=== PATIENT | male | born 1970 | race African-American/Black ===

== ENCOUNTER 2017-01-13 17:36 | Emergency (ER) | payer MEDICAID ==
[~2017-01-13] VITALS: Ht 193 cm; Wt 117.9 kg
[2017-01-13] MEDS ORDERED: traMADol HCL 50 MG TAB PO ONE (18:45)
[2017-01-13 19:06] LABS: Basophils # (auto) 0 uL; Basophils % (auto) 0.5 % (0.0-2.0); Eosinophils # (auto) 0.2 uL; Eosinophils % (auto) 2.3 % (0.0-7.0); Hemoglobin 14.4 g/dL (13.5-17.5); Lymphocytes # (auto) 2.2 uL; Lymphocytes % (auto) 30.8 % (10.0-50.0); Mean Corpuscular Hgb Conc. 32.7 g/dL (32.0-36.0); Mean Corpuscular Volume 98.1 fL (80.0-100.0); Mean Platelet Volume 10.1 fL (7.4-10.4); Monocytes # (auto) 0.6 uL; Monocytes % (auto) 8.5 % (0.0-12.0); Neutrophils # (auto) 4.1 uL; Neutrophils % (auto) 57.9 % (37.0-80.0); Platelet Count (auto) 254 10^3/uL (140-450); Red Cell Distribution Width 14.7 % (11.6-16.0); White Blood Cell 7.1 10^3/uL (4.4-10.8)
[2017-01-13 19:15] LABS: Anion Gap 8 (5-15); BUN/Creatinine Ratio 11.3; Blood Urea Nitrogen 12 mg/dL (7-18); Calcium 8.4 mg/dL (8.5-10.1); Carbon Dioxide 26 mmol/L (21-32); Chloride 105 mmol/L (98-107); GFR African American 96 mL/min; GFR Non-African American 80 mL/min; Glucose 87 mg/dL (74-106); Potassium 4.1 mmol/L (3.5-5.1); Sodium 139 mmol/L (136-145)
[2017-01-14 01:30] VITALS: BP 145/90
== END 2017-01-14 00:50 | disposition home or self-care (01) ==
LOC: EDBD 17:36 → EDUNIT# 17:36 → ER 17:40
DX: F32.9 Major depressive disorder, single episode, unspecified (principal); R45.851 Suicidal ideations; F17.210 Nicotine dependence, cigarettes, uncomplicated; F12.10 Cannabis abuse, uncomplicated; F20.9 Schizophrenia, unspecified
CPT/HCPCS: 36415; 80048; 80307; 80320; 85025; 93005

== ENCOUNTER 2017-12-17 22:36 | Emergency (ER) | payer MEDICAID ==
[~2017-12-17] VITALS: Ht 193 cm; Wt 115.7 kg
[2017-12-17 22:52] VITALS: BP 144/94
[2017-12-18] MEDS ORDERED: KETOROLAC TROMETH 60MG/2ML VIAL IM ONE (00:45)
== END 2017-12-18 01:45 | disposition home or self-care (01) ==
LOC: ER 22:38
DX: S02.2XXA Fracture of nasal bones, initial encounter for closed fracture (principal); F17.210 Nicotine dependence, cigarettes, uncomplicated; M54.9 Dorsalgia, unspecified; G89.29 Other chronic pain; M62.838 Other muscle spasm; Y08.89XA Assault by other specified means, initial encounter; Y93.89 Activity, other specified; Y99.8 Other external cause status; Y92.89 Other specified places as the place of occurrence of the external cause
CPT/HCPCS: 70450; 70486; 96372; 99284; J1885

== ENCOUNTER 2018-01-26 14:50 | Emergency (ER) | payer MEDICAID ==
[~2018-01-26] VITALS: Ht 193 cm; Wt 108.9 kg
[2018-01-26 15:25] LABS: Urine Bacteria NONE SEEN /hpf (None Seen); Urine Blood Negative /uL (Negative); Urine Specific Gravity 1.019 (1.001-1.035); Urine WBC 2 /hpf (0 - 3)
[2018-01-26 15:42] LABS: Alcohol, Urine < 3.0 mg/dL (0-5); Amphetamine Screen, Urine NEGATIVE (NEGATIVE); Barbiturate Scree,Urine NEGATIVE (NEGATIVE); Benzodiazephine Screen, Urine NEGATIVE (NEGATIVE); Cannabinoid Screen, Urine POSITIVE (NEGATIVE); Cocaine Screen, Urine NEGATIVE (NEGATIVE); Opiate Scree,Urine NEGATIVE (NEGATIVE); Phencyclidine Screen, Urine NEGATIVE (NEGATIVE)
[2018-01-26 16:18] LABS: Basophils # (auto) 0.1 uL; Basophils % (auto) 1.4 % (0.0-2.0); Eosinophils # (auto) 0.4 uL; Eosinophils % (auto) 7.2 % (0.0-7.0); Hematocrit 37.5 % (41.0-53.0); Hemoglobin 12.9 g/dL (13.5-17.5); Lymphocytes % (auto) 33.9 % (10.0-50.0); Mean Corpuscular Hgb Conc. 34.2 g/dL (32.0-36.0); Mean Corpuscular Volume 99.3 fL (80.0-100.0); Monocytes # (auto) 0.5 uL; Monocytes % (auto) 8.4 % (0.0-12.0); Neutrophils # (auto) 2.9 uL; Neutrophils % (auto) 49.1 % (37.0-80.0); Nucleated Red Blood Cells % 0.1 %; Platelet Count (auto) 185 10^3/uL (140-450); Red Blood Cells 3.78 10^6/uL (4.5-5.90); Red Cell Distribution Width 14.1 % (11.8-14.3)
[2018-01-26 16:42] LABS: Alanine Aminotransferase 21 U/L (16-61); Albumin 3.6 g/dL (3.4-5.0); Alkaline Phosphatase 135 U/L (45-117); Anion Gap 6 (5-15); Aspartate Aminotransferase 16 U/L (15-37); BUN/Creatinine Ratio 15.7; Bilirubin, Total 0.3 mg/dL (0.2-1.0); Blood Urea Nitrogen 14 mg/dL (7-18); Carbon Dioxide 26 mmol/L (21-32); Chloride 108 mmol/L (98-107); GFR African American 117 mL/min; GFR Non-African American 97 mL/min; Glucose 97 mg/dL (74-106); Sodium 140 mmol/L (136-145); Total Protein 7.2 g/dL (6.4-8.2)
[2018-01-26 18:40] VITALS: BP 123/78
[2018-01-26] MEDS ORDERED: HYDROcodone-ACET 5/325MG TAB ONE (22:24)
[2018-01-26] MEDS ORDERED: HYDROcodone-ACET 5/325MG TAB PO ONE (22:30)
== END 2018-01-26 22:31 | disposition home or self-care (01) ==
LOC: ER 14:50
DX: G89.4 Chronic pain syndrome (principal); F43.12 Post-traumatic stress disorder, chronic; F17.210 Nicotine dependence, cigarettes, uncomplicated; F32.9 Major depressive disorder, single episode, unspecified; F20.9 Schizophrenia, unspecified
CPT/HCPCS: 36415; 70450; 80053; 80307; 81001; 84484; 85025; 93005

== ENCOUNTER 2019-07-31 21:42 | Emergency (ER) | payer MEDICAID ==
[~2019-07-31] VITALS: Ht 193 cm; Wt 117.9 kg
[2019-07-31 22:05] VITALS: BP 133/88
[2019-08-01] MEDS ORDERED: DexAMETHasone SOD PHOS 10MG/1ML VIAL INJ IM ONE (02:00)
[2019-08-01] MEDS ORDERED: BACLOFEN 10 MG TAB PO ONE (02:00)
== END 2019-08-01 03:06 | disposition home or self-care (01) ==
LOC: ER 21:46
DX: M54.16 Radiculopathy, lumbar region (principal); F17.210 Nicotine dependence, cigarettes, uncomplicated; F12.10 Cannabis abuse, uncomplicated
CPT/HCPCS: 96372; 99283; J1100

== ENCOUNTER 2019-08-13 22:48 | Emergency (ER) | payer MEDICAID ==
[~2019-08-13] VITALS: Ht 193 cm; Wt 117.9 kg
[2019-08-13 23:19] LABS: Basophils # (auto) 0.1 uL; Basophils % (auto) 1.1 % (0.0-2.0); Eosinophils # (auto) 0.2 uL; Eosinophils % (auto) 2.6 % (0.0-7.0); Hematocrit 44.1 % (41.0-53.0); Lymphocytes # (auto) 2.6 uL; Mean Corpuscular Hemoglobin 33.8 pg (28.0-32.0); Mean Corpuscular Hgb Conc. 34.1 g/dL (32.0-36.0); Mean Corpuscular Volume 99.1 fL (80.0-100.0); Monocytes # (auto) 0.6 uL; Monocytes % (auto) 6.4 % (0.0-12.0); Neutrophils # (auto) 5.2 uL; Neutrophils % (auto) 59.9 % (37.0-80.0); Platelet Count (auto) 199 10^3/uL (140-450); Red Blood Cells 4.45 10^6/uL (4.5-5.90); Red Cell Distribution Width 16.2 % (11.8-14.3); White Blood Cell 8.6 10^3/uL (4.4-10.8)
[2019-08-13 23:37] LABS: Albumin 3.9 g/dL (3.4-5.0); Calcium 8.7 mg/dL (8.5-10.1); Potassium 4.3 mmol/L (3.5-5.1)
[2019-08-13 23:42] LABS: Bilirubin, Total 0.4 mg/dL (0.2-1.0); Total Protein 8.3 g/dL (6.4-8.2)
[2019-08-14 03:28] LABS: Urine Bacteria NONE SEEN /hpf (None Seen); Urine Blood Negative /uL (Negative); Urine Specific Gravity 1.017 (1.001-1.035); Urine WBC 2 /hpf (0 - 3)
[2019-08-14 07:47] VITALS: BP 130/87
== END 2019-08-14 07:59 | disposition home or self-care (01) ==
LOC: ER 22:48
DX: K59.00 Constipation, unspecified (principal); M54.5 Low back pain; I10 Essential (primary) hypertension; F17.210 Nicotine dependence, cigarettes, uncomplicated
CPT/HCPCS: 36415; 74176; 80053; 81001; 85025

== ENCOUNTER 2021-09-02 15:46 | Emergency (ER) | payer MEDICAID ==
[~2021-09-02] VITALS: Ht 193 cm; Wt 112.0 kg
[2021-09-02 17:28] LABS: Basophils # (auto) 0 10 ^3/uL (0-0.2); Basophils % (auto) 0.8 % (0.0-2.0); Eosinophils # (auto) 0.1 10 ^3/uL (0-0.8); Eosinophils % (auto) 1.9 % (0.0-7.0); Hematocrit 43.6 % (41.0-53.0); Hemoglobin 14.5 g/dL (13.5-17.5); Lymphocytes # (auto) 1.3 10 ^3/uL (0.4-5.4); Lymphocytes % (auto) 25.9 % (10.0-50.0); Mean Corpuscular Hemoglobin 33.6 pg (28.0-32.0); Mean Corpuscular Hgb Conc. 33.3 g/dL (32.0-36.0); Mean Corpuscular Volume 100.7 fL (80.0-100.0); Monocytes # (auto) 0.6 10 ^3/uL (0-1.3); Monocytes % (auto) 12.6 % (0.0-12.0); Neutrophils % (auto) 58.8 % (37.0-80.0); Nucleated Red Blood Cells % 0.1 %; Red Blood Cells 4.33 10^6/uL (4.5-5.90); Red Cell Distribution Width 14.1 % (11.8-14.3); White Blood Cell 5.1 10^3/uL (4.4-10.8)
[2021-09-02 17:34] LABS: Albumin 3.9 g/dL (3.4-5.0); Calcium 8.6 mg/dL (8.5-10.1); Potassium 3.9 mmol/L (3.5-5.1)
[2021-09-02 17:41] LABS: BUN/Creatinine Ratio 7.4; Bilirubin, Total 0.2 mg/dL (0.2-1.0); Total Protein 8.2 g/dL (6.4-8.2)
[2021-09-02] MEDS ORDERED: AML5T GT (19:30)
[2021-09-02 20:15] VITALS: BP 148/86
== END 2021-09-02 20:15 | disposition home or self-care (01) ==
LOC: EDBD 15:46 → ER 15:46
DX: I10 Essential (primary) hypertension (principal); F41.9 Anxiety disorder, unspecified; F17.290 Nicotine dependence, other tobacco product, uncomplicated; F12.10 Cannabis abuse, uncomplicated
CPT/HCPCS: 36415; 71045; 80053; 84484; 85025; 93005

== ENCOUNTER 2025-07-20 12:12 | Emergency (ER) | payer MEDICAID ==
[~2025-07-20] VITALS: Ht 193 cm; Wt 101.4 kg
[~2025-07-20 12:12] MED LIST: AML5T GT
--- NOTE | 2025-07-20 12:26 | ECG ---
[facility] Test Date: 2025-07-20 Test Time: 12:24:45 Pat Name: VIET BUI Department: ED Room: Gender: M Records Tech: : 1970 Requested By: TAYLOR POWERS Order Number: [id number] Reading MD: Christos Arriaga Measurements Intervals [place] Rate: 73 P: 82 NE: 183 QRS: 24 QRSD: 83 T: 58 QT: 390 QTc: 430 Interpretive Statements Sinus rhythm Electronically Signed On 07-22-2025 17:19:30 PST by Christos Arriaga Please click the below link to view image of tracing.
--- NOTE | 2025-07-20 12:30 | ED.PDOC ---
HPI Comments 55 year old male with PMHx HTN, schizophrenia presents to the ED With a chief complaint of chest pain onset 1 day. Patient has been experiencing LT sided, non-radiating chest pain, described as pressure sensation, rates pain 7/10. He is also experiencing nausea and headache. Has experienced pain in the past, has been seen and had negative cardiac workup. Denies vomiting, diarrhea, numbness/tingling, weakness, fever, chills, cough, cold, congestion, shortness of breath, headache, dizziness. No other symptoms or modifying factors present at this time. Chief Complaint: Chest Pain Time Seen by MD: 12:20 Primary Care Provider: ESTELA Franco Notes: Medications, Allergies Allergies: Coded Allergies: NO KNOWN ALLERGIES (Unverified , 01/04/16) Home Meds Active Scripts Amlodipine Besylate (NORVASC TABLET) 5 Mg Tb, 10 MG GT DAILY, #30 TAB Prov:JUVENCIO POSEY DO 09/02/21 Information Source: Patient Mode of Arrival: Ambulatory Severity: Moderate Timing: Days Duration: Since onset Prehospital treatment: None Location: Chest (L) Radiation: No Radiation Quality: Sharp, Pressure Onset: At Rest Cardiac Risk Factors: HTN PE Risk Factors: None History of: Similar pain in past Modifying Factors: Nothing Past Medical History PAST MEDICAL HISTORY: Anxiety, Depression, HTN, Schizophrenia Family History Family History: Family hx of DM Social History Smoker: Cigar Alcohol: Denies ETOH Use Drugs: Marijuana Lives In: Home Constitutional: denies: chills, diaphoresis, fatigue, fever, malaise, sweats, weakness, others EENTM: denies: blurred vision, double vision, ear bleeding, ear discharge, ear drainage, ear pain, ear ringing, eye pain, eye redness, hearing loss, mouth pain, mouth swelling, nasal discharge, nose bleeding, nose congestion, nose pain, photophobia, tearing, throat pain, throat swelling, voice changes, others Respiratory: denies: cough, hemoptysis, orthopnea, SOB at rest, shortness of breath, SOB with excertion, stridor, wheezing, others Cardiovascular: reports: chest pain; denies: dizzy spells, diaphoresis, Dyspnea on exertion, edema, irregular heart beat, left arm pain, lightheadedness, palpitations, PND, syncope, others Gastrointestinal: reports: nausea; denies: abdomen distended, abdominal pain, blood streaked bowels, constipated, diarrhea, dysphagia, difficulty swallowing, hematemesis, melena, poor appetite, poor fluid intake, rectal bleeding, rectal pain, vomiting, others Neurological: reports: headache; denies: dizziness, fainting, left sided numbness, left sided weakness, numbness, paresthesia, pre-existing deficit, right sided numbness, right sided weakness, seizure, speech problems, tingling, tremors, weakness, others Musculoskeletal: denies: back pain, gout, joint pain, joint swelling, muscle pain, muscle stiffness, neck pain, others Integumetry: denies: bruises, change in color, change in hair/nails, dryness, laceration, lesions, lumps, rash, wounds, others Allergic/Immunocompromised: denies: Difficulty Healing, Frequent Infections, Hives, Itching, others Hematologic/Lymphatic: denies: anemia, blood clots, easy bleeding, easy bruising, swollen glands, others Endocrine: denies: excessive hunger, excessive sweating, excessive thirst, excessive urination, flushing, intolerance to cold, intolerance to heat, u nexplained weight gain, unexplained weight loss, others Psychiatric: denies: anxiety, bipolar disorder, depression, hopeless, panic disorder, schizophrenia, sleepless, suicidal, others All Other Systems: Reviewed and Negative Physical Exam General Appearance: No Apparent Distress, Normal HEENT: Normal ENT Inspection, Pharynx Normal, TMs Normal Neck: Full Range of Motion, Non-Tender, Normal, Normal Inspection Respiratory: Chest Non-Tender, Lungs Clear, No Accessory Muscle Use, No Respiratory Distress, Normal Breath Sounds Cardiovascular: No Edema, No JVD, No Murmur, No Gallop, Normal Peripheral P ulses, Regular Rate/Rhythm Breast Exam: Deferred Gastrointestinal: No Organomegaly, Non Tender, No Pulsatile Mass, Normal Bowel Sounds, Soft Genitalia: Deferred Pelvic: Deferred Rectal: Deferred Extremities: No calf tenderness, Normal capillary refill, Normal inspection, Normal range of motion, Non-tender, No pedal edema Musculoskeletal : Apperance: Normal Neurologic: Alert, cleater II-XII nml as Tested, No Motor Deficits, Normal Affect, Normal Mood, No Sensory Deficits Cerebellar Function: Normal Reflexes: Normal Skin: Dry, Normal Color, Warm Lymphatic: No Adenopathy Was a procedure done? Was a procedure done?: No CP Differential Dx Differential Diagnosis: MAT, CT, PAC's Differential Diagnosis: Chest Wall Pain, Costochondritis, Myocardial Infarction X-Ray, Labs, Meds, VS Vital Signs Date Time Temp Pulse Resp B/P (MAP) Pulse Ox O2 Delivery O2 Flow Rate FiO2 07/20/25 13:35 97.8 10 16 146/93 (110) 99 97.8 07/20/25 13:34 68 07/20/25 12:24 73 07/20/25 12:16 97.9 75 16 138/86 99 97.9 Lab Test 07/20/25 13:54 07/20/25 12:47 Range/Units Troponin I High Sensitivity < 3 L < 3 L </=54 ng/L White Blood Count 5.9 4.4-10.8 10^3/uL Red Blood Count 4.19 L 4.5-5.90 10^6/uL Hemoglobin 14.5 13.5-17.5 g/dL Hematocrit 42.8 41.0-53.0 % Mean Corpuscular Volume 102.2 H 80.0-100.0 fL Mean Corpuscular Hemoglobin 34.6 H 28.0-32.0 pg Mean Corpuscular Hemoglobin Concent 33.8 32.0-36.0 g/dL Red Cell Distribution Width 13.6 11.8-14.3 % Platelet Count 214 140-450 10^3/uL Mean Platelet Volume 10.0 6.9-10.8 fL Neutrophils (%) (Auto) 64.4 37.0-80.0 % Lymphocytes (%) (Auto) 23.1 10.0-50.0 % Monocytes (%) (Auto) 8.8 0.0-12.0 % Eosinophils (%) (Auto) 2.4 0.0-7.0 % Basophils (%) (Auto) 1.3 0.0-2.0 % Neutrophils # (Auto) 3.8 1.6-8.6 10 ^3/uL Lymphocytes # (Auto) 1.4 0.4-5.4 10 ^3/uL Monocytes # (Auto) 0.5 0-1.3 10 ^3/uL Eosinophils # (Auto) 0.1 0-0.8 10 ^3/uL Basophils # (Auto) 0.1 0-0.2 10 ^3/uL Nucleated Red Blood Cells 0.1 % Sodium Level 142 136-145 mmol/L Potassium Level 4.0 3.5-5.1 mmol/L Chloride Level 108 H 98-107 mmol/L Carbon Dioxide Level 27 20-31 mmol/L Anion Gap 7 5-15 Blood Urea Nitrogen 6 L 9-23 mg/dL Creatinine 0.95 0.700-1.30 mg/dL Glomerular Filtration Rate Calc 94 >90 mL/min BUN/Creatinine Ratio 6.3 L 10.0-20.0 Serum Glucose 89 74-106 mg/dL Calcium Level 9.2 8.7-10.4 mg/dL [place] [id number] Ph: [phone] DIAGNOSTIC IMAGING Diagnostic Imaging Report : [id number] Signed PATIENT: VIET BUI ACCT: [id number] UNIT: [id number] : 1970 LOC: ER ROOM / BED: / AGE / SEX: 55 / M ADM STATUS: REG ER SERVICE 26 ORDERING PHYSICIAN: TAYLOR POWERS MD PROCEDURE(s): CXR1 - CHEST XRAY 1 VIEW REASON: CHEST PAIN ORDER NUMBER(s): [id number], ACCESSION NUMBER(s): [id number] CHEST RADIOGRAPH INDICATION: CHEST PAIN TECHNIQUE: Single frontal view of the chest was obtained COMPARISON: XR CHEST 1 VIEW on DOS: 10/11/22, CHEST PORTABLE on DOS: 09/02/21 FINDINGS: Lines and Tubes: None Lungs: No focal consolidation. Pleura: Stable left apical pleural scarring. No pneumothorax. Cardiomediastinal contours: Unremarkable Bones: No acute osseous abnormality. IMPRESSION: 1. No acute cardiopulmonary disease. ATED BY: DESTINY CHAPARRO Jr., DO DICTATED DATE/TIME: 07/20/251254 SIGNED BY: DESTINY CHAPARRO Jr., DO SIGNED DATE/TIME: 07/20/251254 CC: Time of 1ST Reevaluation: 12:50 Reevaluation 1ST: Unchanged Patient Education/Counseling: Diagnosis, Treatment, Prognosis Family Education/Counseling: No Family Present SEPSIS Sepsis Screen Date sepsis recognized/suspect: Jul 20, 2025 Time Sepsis recognized/suspect: 1218 Recent Procedure: No On Antibiotic Therapy: No Respiratory Rate >20: No Heart Rate >90: No Temp<36 C (96.8 F) or >38.3 C: No SBP <90 or MAP <65 mmHG: No New Acute Mental Status Change: No Is the patient on CPAP, BIPAP,: No Physician Orders Troponin-I Hs (07/20/25 15:14) Electrocardigram (07/20/25 15:14) Chest Xray 1 View (07/20/25 12:27) Vital Signs Date Time Temp Pulse Resp B/P (MAP) Pulse Ox O2 Delivery O2 Flow Rate FiO2 07/20/25 13:35 97.8 10 16 146/93 (110) 99 97.8 07/20/25 13:34 68 07/20/25 12:24 73 07/20/25 12:16 97.9 75 16 138/86 99 97.9 Laboratory Tests Test 07/20/25 12:47 White Blood Count 5.9 10^3/uL (4.4-10.8) Departure 1 Departure Time of Disposition: 15:16 (Patient presented with chest pain that was concerning for possible STEMI, ACS, PE, Pneumonia, Muscle Strain, COPD, Dissection. Data: 1. I ordered and reviewed the result of at least 3 labs including a CBC, BMP, and Troponin. 2. I independently interpreted the following tests: EKG which shows normal sinus rhythm and Chest X-ray which shows a benign chest.Risk:This patient presented with a high risk of morbidity due to further diagnostic testing or treatment and may suffer from an acute cardiac or respiratory disorder. After review of all the data patient is unlikely to have a pe , dissection, and is low risk for acs. Patient is stable at this time.Workup so far is benign and patient will be discharged with outpatient followup. ) Impression: Primary Impression: Migraine Additional Impression: Acute chest pain Disposition: HOME / SELF CARE / HOMELESS Condition: Stable Additional Instructions: You presented today with chest pain. Your workup today was benign including labs, troponin, EKG, chest x-ray. Your pain may be from musculoskeletal strain, acid reflux, anxiety, or many other factors. For your headache you can take Tylenol or Motrin as needed for pain It is important to follow up with your regular doctor within 1 week. If your symptoms worsen or you have any other concerns please return to the emergency room. Discharged With: Self Critical Care Note Critical Care Time?: No Stability Stability form required: No Heart Score Heart Score: Heart Score Response (Comments) Value History N/A 0 EKG N/A 0 Age N/A 0 Risk Factors N/A 0 Troponin N/A 0 Total 0 I personally scribed for TAYLOR POWERS MD ([email or web address]) on 07/20/25 at 12:30. Electronically submitted by Daphne Duncan ([email or web address]). I personally scribed for TAYLOR POWERS MD ([email or web address]) on 07/20/25 at 13:39. Electronically submitted by Daphne Duncan ([email or web address]). TAYLOR POWERS MD Jul 20, 2025 12:30
--- NOTE | 2025-07-20 12:57 | DVH ---
CHEST RADIOGRAPH INDICATION: CHEST PAIN TECHNIQUE: Single frontal view of the chest was obtained COMPARISON: XR CHEST 1 VIEW on DOS: 10/11/22, CHEST PORTABLE on DOS: 09/02/21 FINDINGS: Lines and Tubes: None Lungs: No focal consolidation. Pleura: Stable left apical pleural scarring. No pneumothorax. Cardiomediastinal contours: Unremarkable Bones: No acute osseous abnormality. IMPRESSION: 1. No acute cardiopulmonary disease.
[2025-07-20 13:02] LABS: Hematocrit 42.8 % (41.0-53.0); Hemoglobin 14.5 g/dL (13.5-17.5); Mean Corpuscular Hemoglobin 34.6 pg (28.0-32.0); Mean Corpuscular Volume 102.2 fL (80.0-100.0); Nucleated Red Blood Cells % 0.1 %
[2025-07-20 13:08] LABS: Potassium 4.0 mmol/L (3.5-5.1); Sodium 142 mmol/L (136-145)
[2025-07-20 13:09] LABS: Anion Gap 7 (5-15); Calcium 9.2 mg/dL (8.7-10.4); Carbon Dioxide 27 mmol/L (20-31)
[2025-07-20 13:14] LABS: BUN/Creatinine Ratio 6.3 (10.0-20.0); Chloride 108 mmol/L (98-107); Glucose 89 mg/dL (74-106)
[2025-07-20 13:20] LABS: Blood Urea Nitrogen 6 mg/dL (9-23)
--- NOTE | 2025-07-20 13:35 | ECG ---
[facility] Test Date: 2025-07-20 Test Time: 13:34:26 Pat Name: VIET BUI Department: Room: Gender: M It Technical Support Specialist: YADIRA : 1970 Requested By: TAYLOR POWERS Order Number: [id number] Reading MD: Christos Arriaga Measurements Intervals [place] Rate: 68 P: 78 RI: 193 QRS: 16 QRSD: 85 T: 48 QT: 391 QTc: 416 Interpretive Statements Sinus rhythm Electronically Signed On 07-22-2025 17:19:48 PST by Christos Arriaga Please click the below link to view image of tracing.
--- NOTE | 2025-07-20 15:25 | ECG ---
[facility] Test Date: 2025-07-20 Test Time: 15:24:19 Pat Name: VIET BUI Department: ED Room: Gender: M Practice Office Associate: YADIRA : 1970 Requested By: TAYLOR POWERS Order Number: [id number] Reading MD: Christos Arriaga Measurements Intervals [place] Rate: 68 P: 82 VT: 198 QRS: 19 QRSD: 80 T: 64 QT: 384 QTc: 409 Interpretive Statements Sinus rhythm Consider left atrial enlargement Electronically Signed On 07-22-2025 17:23:13 PST by Christos Arriaga Please click the below link to view image of tracing.
[2025-07-20 15:31] VITALS: BP 136/87; PULSE 67; RESP 16; TEMP 98.1; O2SAT 100
[2025-07-20] MEDS: HYDROcodone-ACET 5/325MG TAB PO ONE (15:36)
== END 2025-07-20 15:39 | disposition home or self-care (01) ==
LOC: ER 12:12
DX: R07.89 Other chest pain (principal); G43.909 Migraine, unspecified, not intractable, without status migrainosus; F12.90 Cannabis use, unspecified, uncomplicated; F17.290 Nicotine dependence, other tobacco product, uncomplicated; I10 Essential (primary) hypertension; F20.9 Schizophrenia, unspecified; F41.9 Anxiety disorder, unspecified; Z79.899 Other long term (current) drug therapy
CPT/HCPCS: 36415; 71045; 80048; 84484; 85025; 93005